=== PATIENT | female | born 1970 | race Caucasian/White ===

== ENCOUNTER → 2021-03-11 01:41 | Outpatient (CLI) | payer MEDICARE, SELFPAY ==
--- NOTE | 2021-03-11 | DI.MRI_ITS ---
Exam(s) MR BRAIN WO/W EXAM: MR BRAIN WO/W CLINICAL HISTORY: F/U ASTROCYTOMA, SURVEILLANCE,C71.9 TECHNIQUE: Multiplanar multisequence MRI of the brain was performed. Both noninfused and contrast i nfused sequences were performed. IV Contrast injected was 12 cc Dotarem. FINDINGS: CEREBRAL PARENCHYMA: Again noted are postoperative changes in the right frontal lobe with unchanged a cierra of tissue loss and no increased signal abnormality nor no abnormal enhancement in this region or elsewhere in the brain. No abnormal meningeal enhancement. Ventricular size is unchanged. Amount o f white matter signal abnormality in the periventricular regions is also unchanged. PITUITARY GLAND: No mass nor parasellar abnormality. No obvious abnormality in the cavernous sinuses. FLOW VOIDS: The expected flow void are noted. No evidence of obvious aneurysm nor obvious vascular ma lformation. PARANASAL SINUSES: The visualized paranasal sinuses appear unremarkable. ORBITS: No obvious abnormal findings. IMPRESSION: 1. Stable appearance of the right frontal operative site with no evidence of neoplasm recurrence/prog ression. 2. The amount of white matter signal abnormality is also stable. 3. There are no ring enhancing lesions in the brain and there is no abnormal meningeal enhancement. DATA REPOSITORY:
[2021-03-11] MEDS: Normal Saline Flush 10 ML SYR IVP (11:31)
[2021-03-11] MEDS: Gadoterate meglumine 20 ML VIAL 12 ML IVP (11:33)
== END ==
PROVIDERS: PCP Nurse Practitioner Family; Visit Provider Internal Medicine
DX: C71.9 Malignant neoplasm of brain, unspecified (principal); R90.82 White matter disease, unspecified
CPT/HCPCS: 70553

== ENCOUNTER 2021-07-06 02:54 | Outpatient (CLI) | payer MEDICARE, SELFPAY ==
[2021-07-06 11:16] LABS: Abs Immature Grans 0.01 10^3/uL (0.0-0.06); Absolute Basophil Count 0.03 10^3/uL (0.0-0.2); Absolute Eosinophil Count 0.11 10^3/uL (0.0-0.7); Absolute Lymphocyte Count 1.11 10^3/uL (1.2-3.4); Absolute Monocyte Count 0.26 10^3/uL (0.1-0.8); Basophils % 0.9; Eosinophils % 3.1; HGB 12.7 g/dL (11.2-15.7); Immature Grans % 0.3; Lymphocytes % 31.5; MCH 31.3 pg (27.0-33.0); MCHC 32.6 % (32.0-36.0); MCV 96.1 fL (80-95); MPV 10.5 fL (8.0-11.0); Monocytes % 7.4; Neutrophils % 56.8; Nucleated RBC 0 %; Platelet Count 196 10^3/uL (130-400); RBC 4.06 10^6/uL (3.93-5.22); RDW 12.2 % (11.7-14.6); RDW-SD 42.8 fL; WBC 3.52 10^3/uL (4.4-10.8)
[2021-07-06 11:28] LABS: ALT 19 U/L (14-59); AST 16 U/L (15-37); Albumin 4.2 g/dL (3.4-5.0); Alkaline Phosphatase 78 U/L (46-116); Anion Gap 7.6 mmol/L (3-11); BUN 10 mg/dL (7-18); Bilirubin, Total 0.3 mg/dL (0.2-1.0); CO2 29.4 mmol/L (21.0-32.0); CREATININE 0.8 mg/dL (0.55-1.02); Chloride 103 mmol/L (98-107); Glucose 87 mg/dL (74-106); Potassium 4.2 mmol/L (3.5-5.1); Sodium 140 mmol/L (136-145); Total Protein 7.8 g/dL (6.4-8.2)
== END 2021-07-06 02:55 | disposition home or self-care (01) ==
LOC: LBO 02:54
PROVIDERS: PCP Nurse Practitioner Family; Visit Provider Internal Medicine
DX: R55 Syncope and collapse (principal)
CPT/HCPCS: 36415; 80053; 85025; 93005

== ENCOUNTER 2021-07-06 03:15 | Outpatient (CLI) | payer MEDICARE, SELFPAY ==
--- NOTE | 2021-07-06 11:00 | RT.EKG_ITS ---
APPROVED REPORT Exam: Resting ECG Reason for Exam: [id number] SYNCOPE Patient Location: O HR:54 bpm ECG Measurements Heart Rate 54 AXIS ME 160 P 68 QRSd 92 QRS 56 QT 462 T 58 QTc 438 Conclusion Sinus bradycardia...rate< 60 Low voltage, precordial leads...precordial leads <1.0mV
== END 2021-07-06 03:16 | disposition home or self-care (01) ==
LOC: RT 03:15
PROVIDERS: PCP Nurse Practitioner Family; Visit Provider Internal Medicine
DX: R55 Syncope and collapse (principal)
CPT/HCPCS: 93005; 93010

== ENCOUNTER 2021-10-01 02:42 | Outpatient (CLI) | payer MEDICARE, SELFPAY ==
--- NOTE | 2021-10-01 | DI.MRI_ITS ---
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 Both noninfused and contrast i nfused sequences were performed. IV Contrast injected was 12 cc Dotarem. COMPARISON: MR MR BRAIN WO/W from 03/11/2021 FINDINGS: CEREBRAL PARENCHYMA: Again noted are postoperative changes in the right frontal lobe with no signific ant change in this region nor in the surrounding white matter. There is no new enhancement in the operative site. No ring enhancing lesions at this level nor else where in the brain and there is no new abnormal meningeal enhancement, focal nor diffuse. The amount of periventricular signal abnormality bilaterally is unchanged. There is no new restricted diffusion in the brain to suggest recent ischemic insult. PITUITARY GLAND: No mass nor parasellar abnormality. No obvious abnormality in the cavernous sinuses. FLOW VOIDS: The expected flow void are noted. No evidence of obvious aneurysm nor obvious vascular ma lformation. PARANASAL SINUSES: The visualized paranasal sinuses appear unremarkable. ORBITS: No new obvious abnormality IMPRESSION: 1. There is continued stable appearance of the right frontal lobe operative site with no evidence of neoplasm recurrence. There are no ring enhancing lesions in this region or elsewhere in the brain an d there is no abnormal meningeal enhancement. 2. The amount of bilateral white matter signal abnormality also remain stable. DATA REPOSITORY:
[2021-10-01] MEDS: Normal Saline Flush 10 ML SYR IVP (11:01)
[2021-10-01] MEDS: Gadoterate meglumine 20 ML VIAL 12 ML IVP (11:02)
== END 2021-10-01 03:02 ==
LOC: DI 02:43
PROVIDERS: PCP Nurse Practitioner Family; Visit Provider Internal Medicine
DX: C71.9 Malignant neoplasm of brain, unspecified (principal)
CPT/HCPCS: 70553

== ENCOUNTER 2022-11-22 04:17 | Outpatient (CLI) | payer MEDICARE, SELFPAY ==
[2022-11-22 09:57] LABS: Absolute Basophil Count 0.01 10^3/uL (0.0-0.2); Absolute Eosinophil Count 0.08 10^3/uL (0.0-0.7); Absolute Lymphocyte Count 1.07 10^3/uL (1.2-3.4); Absolute Neutrophil Count 1.93 10^3/uL (1.2-6.7); Basophils % 0.3; Eosinophils % 2.4; HCT 35.2 % (36.0-46.0); HGB 11.8 g/dL (11.2-15.7); Lymphocytes % 31.6; MCH 31.1 pg (27.0-33.0); MCHC 33.5 % (32.0-36.0); MCV 93 fL (80-95); MPV 9.9 fL (8.0-11.0); Monocytes % 8.8; Neutrophils % 56.9; Platelet Count 155 10^3/uL (130-400); RDW 11.8 % (11.7-14.6); RDW-SD 39.7 fL; WBC 3.39 10^3/uL (4.4-10.8)
--- NOTE | 2022-11-22 10:00 | DI.MRI_ITS ---
Exam(s) MR BRAIN WO/W EXAM: MR BRAIN WO/W CLINICAL HISTORY: ANAPLASTIC ASTROCYTOMA, C71.9 TECHNIQUE: Multiplanar multisequence MRI of the brain was performed. Both noninfused and contrast i nfused sequences were performed. IV Contrast injected was 12 cc Dotarem. COMPARISON: MR MR BRAIN WO/W from 10/01/2021 FINDINGS: CEREBRAL PARENCHYMA: Again noted are the previously described postoperative changes right frontal lob e. The appearance remains unchanged no evidence of new enhancing mass nor ring enhancement in this regio n nor elsewhere in the brain. The amount of surrounding white matter signal abnormality is also unch anged. No new abnormal meningeal enhancement. DWI: No areas of restricted diffusion in the brain. PITUITARY GLAND: No mass nor parasellar abnormality. No obvious abnormality in the cavernous sinuses. FLOW VOIDS: The expected flow void are noted. No evidence of obvious aneurysm nor obvious vascular ma lformation. PARANASAL SINUSES: The visualized paranasal sinuses appear unremarkable. ORBITS: No obvious abnormal findings. IMPRESSION: 1. Continued stable appearance of the right frontal lobe operative site. No evidence of recurrent ne oplasm in this region nor elsewhere in the brain. No ring enhancing lesions, mural nodular enhanceme nt, nor abnormal meningeal enhancement. 2. The amount of bilateral white matter signal abnormality also remain stable. DATA REPOSITORY:
[2022-11-22 10:12] LABS: ALT 27 U/L (14-59); AST 17 U/L (15-37); Albumin 4.2 g/dL (3.4-5.0); Alkaline Phosphatase 80 U/L (46-116); Anion Gap 7.7 mmol/L (3-11); BUN 12 mg/dL (7-18); Bilirubin, Total 0.2 mg/dL (0.2-1.0); CO2 29.3 mmol/L (21.0-32.0); CREATININE 0.8 mg/dL (0.55-1.02); Calcium 9.1 mg/dL (8.5-10.1); Chloride 103 mmol/L (98-107); Estimated GFR 88.05 (mL/min/1.73m2); Glucose 89 mg/dL (74-106); Potassium 3.8 mmol/L (3.5-5.1); Sodium 140 mmol/L (136-145)
[2022-11-22] MEDS: Normal Saline Flush 10 ML SYR IVP (10:14)
[2022-11-22] MEDS: Gadoterate meglumine 20 ML SYRINGE 12 ML IVP (10:15)
== END 2022-11-22 04:37 ==
PROVIDERS: PCP Nurse Practitioner Family; Visit Provider Internal Medicine
DX: C71.9 Malignant neoplasm of brain, unspecified (principal)
CPT/HCPCS: 70553; 80053; 85025

== ENCOUNTER 2024-04-11 01:27 | Outpatient (CLI) | payer MEDICARE, SELFPAY ==
--- NOTE | 2024-04-11 12:30 | DI.US_ITS ---
APPROVED REPORT EXAM: Comprehensive 2D, Doppler, and color-flow Echocardiogram Patient Location: Out-Patient [employer] Engineer: Farnaz Jameson RDCS (AE) Indications: Mitral valve prolapse, Recurrent syncope Other Information Study Quality: Adequate. Technically limited study due to body habitus. Conclusion Normal left ventricular wall thickness and chamber size. Ejection fraction is 58%. Wall motion is n ormal Normal right ventricular size and function Both atria are normal in size There is very mild late systolic mitral valve prolapse with trace regurgitation Normal estimated right ventricular systolic pressure 23 mmHg Wall motion Left Ventricle The left ventricle is normal size. The left ventricular systolic function is normal. The left ventric ular ejection fraction is within the normal range. There is normal left ventricular wall thickness. T here is normal LV segmental wall motion. There is no ventricular septal defect visualized. LVEF is 60 %. Right Ventricle The right ventricle is normal size. The right ventricular systolic function is normal. Atria The left atrium size is normal. The right atrium size is normal. The interatrial septum is intact wit h no evidence for an atrial septal defect. Aortic Valve The aortic valve is normal in structure. Aortic valve is trileaflet. There is no aortic valvular sten osis. No aortic regurgitation is present. Mitral Valve No evidence of mitral valve stenosis. Trace mitral regurgitation. Mild mitral valve prolapse. Tricuspid Valve The tricuspid valve is normal in structure. There is no tricuspid valve stenosis. Trace tricuspid reg urgitation. The RVSP is 23.5_ mmHg. Pulmonic Valve The pulmonary valve is normal in structure. There is no pulmonic valvular stenosis. There is no pulmo edison valvular regurgitation. Great Vessels The aortic root is normal in size. Ascending aorta is not well visualized. Aortic arch is normal in c aliber. IVC is normal in size and collapses >50% with inspiration. Pericardium Trace to mild circumferential pericardial effusion. 2D Dimensions IVSD d PLAX 0.67 cm F: 0.6-1.0 Ao Root d 2.64 cm F: 2.7 - 3.3 LVPW d PLAX 0.65 cm F: 0.6 - 1.0 LVID d PLAX 4.05 cm F: 3.8 - 5.2 LVDs 2.74 cm F: 2.2 - 3.5 LV EF Teichholz 60.9 % FS 32.20 % LV EDV (Teich) 72.0 mL LV ESV (Teich) 28.1 mL M-Mode TAPSE 2.28 cm (M/F) >1.7 Auto EF LV EDV A4C 63.0 mL LV EDV A2C 101.7 mL LV EDV BP 80.9 mL LV ESV A4C 27.0 mL LV ESV A2C 44.1 mL LV ESV BP 35.1 mL LVEF(%) A4C 57.2 % LVEF(%) A2C 56.6 % LVEF(%) BP 56.6 % LV SV A4C 36.0 ml LV SV A2C 57.6 ml LV SV BP 45.8 ml LV CO A4C 1.9 L/min LV CO A2C 2.9 L/min LV CO BP 2.4 L/min HR A4C 53.89 BPM HR A2C 50.28 BPM LV EDV Index (BP) LA Volume LA Length A4C 3.3 cm LA Length A2C 4.3 cm LA Area A4C s 8.11 cm2 LA Area A2C s 10.05 cm2 LA Vol A4C A-L 16.70 mL LA Vol A2C A-L 19.75 mL LA Vol Biplane A-L 20.7 mL LA Vol/BSA A4C A-L LA Vol/BSA A2C A-L LA Vol/BSA BP A-L 12.8 mL/m2 LA Vol A4C MOD 15.8 mL LA Vol A2C MOD 17.9 mL LA Vol BP MOD 19.1 mL LV Diastology MV E' medial 0.103 (>0.07 m/s) MV E Vmax 0.63 (0.4-1.3 m/s) MV E/E' MED 6.10 (<14) MV A Vmax 0.55 (0.4-1.3 m/s) MV E' lateral 0.102 (>0.1 m/s) E/A Ratio 1.1 MV E/E' LAT 6.13 (<14) MV E' Average 0.102 m/s MV E/E'(average) 6.11 Aortic Valve AoV Vmax 1.06 m/s LVOT Vmax 0.87 m/s AoV Peak Grad 4.5 mmHg LVOT Peak Grad 3.0 mmHg AoV Area (Vmax) 2.30 cm2 LVOT VTI 0.193 m AoV VTI 0.284 m LVOT Mean Grad 1.5 mmHg AoV Mean Diego. 0.72 m/s LVOT SV 54.40 mL AoV Mean Grad 2.4 mmHg LVOT Diam s 1.85 cm AoV Area (VTI) 1.92 cm2 AV Regurg Peak Gr. 4.49 mmHg Velocity Ratio 0.82 Mitral Valve MV DT 278 (160-240 msec) MV Vmax TIPS 0.62 m/s MV Mean Grad 0.6 (<2mmHg) MV VTI 0.240 m Tricuspid Valve RA Pressure 3.00 mmHg TR Vmax 2.26 m/s TV S' 0.14 m/s TR Peak Grad 20.4 mmHg RVSP (TR) 23.5 mmHg
== END 2024-04-11 01:47 ==
PROVIDERS: PCP Nurse Practitioner Family; Visit Provider Nurse Practitioner Family
DX: I34.1 Nonrheumatic mitral (valve) prolapse (principal)
CPT/HCPCS: 93306

== ENCOUNTER 2024-04-11 01:27 | Outpatient (CLI) | payer MEDICARE, SELFPAY ==
--- NOTE | 2024-04-11 | DI.MRI_ITS ---
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 TECHNIQUE: Multiplanar multisequence MRI of the brain was performed. CONTRAST MATERIAL: IV Contrast: 11 ML of Dotarem contrast administered. MR MR BRAIN WO/W from 03/11/2021 MR MR BRAIN WO/W from 10/01/2021 MR MR BRAIN WO/W from 11/22/2022 FINDINGS: VENTRICLES AND EXTRA AXIAL SPACES: Normal in size and morphology for the patient's age. HEMORRHAGE: None. CEREBRAL PARENCHYMA: No focus of restricted diffusion to suggest acute infarct. Stable area of enceph alomalacia again noted in the high right frontal region. Adjacent areas of high signal. Significant areas of high signal also noted in the periventricular white matter. This appears unchanged from pr ior. This may be related to post through treatment changes. There are few scattered tiny foci of lechuga sceptibility artifact consistent with old this also appears stable from prior. Scattered petechial m icrohemorrhages . Mild atrophy. No evidence of recurrence mass. MIDLINE SHIFT: None. BRAINSTEM/CEREBELLUM: Normal. CALVARIUM: Right frontal craniotomy. ENHANCEMENT: No suspicious enhancement identified. VISUALIZED PARANASAL SINUSES/MASTOIDS: Clear. Orbits: Unremarkable. Pituitary: Normal. Vasculature: Normal flow voids. IMPRESSION: Stable post treatment changes in the right frontal lobe. Stable atrophy and white matter changes. No evidence of recurrence mass or metastatic disease. DATA REPOSITORY:
[2024-04-11] MEDS: Gadoterate meglumine 20 ML SYRINGE IVP (14:37)
[2024-04-11] MEDS: Normal Saline Flush 10 ML SYR IJ (14:38)
== END 2024-04-11 01:47 ==
PROVIDERS: PCP Nurse Practitioner Family; Visit Provider Internal Medicine
DX: D49.6 Neoplasm of unspecified behavior of brain (principal)
CPT/HCPCS: 70553; 93306